=== PATIENT | male | born 1970 | race Caucasian/White ===

== ENCOUNTER → 2016-12-01 | Outpatient (CLI) | payer OTHER ==
[~2016-12-01] MED LIST: ALBUAER19 INH; CLX/20 PO; IBUP-103 PO; PRED20TA PO; PRLSR20 PO
[2016-12-01 12:33] LABS: BASO % 0.5 %; BASO ABS # 0.04 K/uL (0-0.2); COMPLETE YES; EOS % 1.5 %; HEMATOCRIT 44.9 % (42-52); IG% 0.1 %; LYMPH % 27.4 %; LYMPH ABS # 2.14 K/uL (1.2-3.4); MEAN CELL VOLUME 81.3 fL (80-100); MEAN CORPUSCULAR HEMOGLOBIN 27.2 pg (25-34); MEAN CORPUSCULAR HGB CONC 33.4 g/dl (32-36); MONO % 4.5 %; PLATELET COUNT 284 K/uL (130-400); RED BLOOD COUNT 5.52 M/uL (4.7-6.1); WHITE BLOOD COUNT 7.82 K/uL (4.8-10.8)
[2016-12-01 13:11] LABS: ALKALINE PHOSPHATASE 85 U/L (45-117); AST/SGOT 23 U/L (15-37); BLOOD UREA NITROGEN 11 mg/dl (7-18); BUN/CREATININE RATIO 13.2 (10-20); CALCIUM 8.5 mg/dl (8.5-10.1); CARBON DIOXIDE 30 mmol/L (21-32); CHLORIDE 107 mmol/L (98-107); CHOLESTEROL 174 mg/dl (0-200); CHOLESTEROL/HDL RATIO 4.4; CREATININE 0.85 mg/dl (0.60-1.40); GLUCOSE 143 mg/dl (70-99); HDL CHOLESTEROL 40 mg/dl; LDL CHOLESTEROL CALCULATED 106 mg/dl; POTASSIUM 4.2 mmol/L (3.5-5.1); RATIO 6.8 mcg/mg (0-30.0); SODIUM 142 mmol/L (136-145); TRIGLYCERIDES 139 mg/dl (0-150); VERY LOW DENSITY LIPOPROT CALC 28 mg/dl
[2016-12-01 13:19] LABS: ALT/SGPT 31 U/L (12-78)
[2016-12-01 13:27] LABS: ESTIMATED AVERAGE GLUCOSE 143 mg/dl; HA1C FLAG Normal (Normal)
== END | disposition home or self-care (01) ==
LOC: C.LAB1850 10:18
PROVIDERS: ATTEND Nurse Practitioner Family
DX: E66.9 Obesity, unspecified (principal); E78.5 Hyperlipidemia, unspecified; Z13.1 Encounter for screening for diabetes mellitus

== ENCOUNTER 2017-03-08 16:11 | Emergency (ER) | payer OTHER ==
[~2017-03-08] VITALS: Ht 177.8 cm; Wt 106.0 kg
[~2017-03-08 16:11] MED LIST changes: -PRED20TA PO
[2017-03-08 16:14] VITALS: TEMP 36.7; Ht 177.8 cm; Wt 106.0 kg
[2017-03-08] MEDS ORDERED: DEXAMETHASONE SOD INJ 10 MG/ML VIAL IM ONE (16:30)
[2017-03-08] MEDS ORDERED: PRED20TA PO (16:35)
--- NOTE | 2017-03-08 16:45 | EMERGENCY ROOM VISIT NOTE ---
History First contact with patient: 16:17 Chief Complaint: RASH Stated Complaint: POISY VERÓNICA OR OAK History of Present Illness The patient is a 47 year old male who presents to the Emergency Room with complaints of poison verónica dermatitis. The patient reports that he cut down a tree last Monday that was covered with IV. He did not realize that it was poison verónica until he woke up from a nap that evening and his arms were red and swollen. He reports that his arms are affected the most, followed by his abdomen and chest. He also had small red lesions under both eyes. He was seen at the [facility] urgent care center on Monday and was administered a steroid shot, and received a tapered dose of prednisone. The patient reports that he was only treated for 5 days. He has a history of sarcoidosis and take steroids frequently, and asked that the steroids be treated for a longer period of time. The patient reports that after completing his steroid taper, the rash came back worse, except for the face. He rates his overall discomfort a 4 out of 10. Review of Systems 10 system review was performed and was negative except for pertinent positives and negatives as indicated in history of present illness Past Medical/Surgical History Medical Problems: (1) Anxiety State Nos (2) Asthma, Unspecified (3) Calculus Of Ureter (4) Diabetes (5) Diverticulosis Colon (W/O Ment Of Hemorrhage) (6) Hyperlipidemia, Unspecified (7) Int Hemorrhoid W/O Compl (8) Pneumonia, Organism Nos (9) Sarcoidosis (10) Splenomegaly Surgical Problems: (1) History of lung biopsy Family History FH: diabetes mellitus FH: heart disease FH: hypertension FH: kidney disease Social History Smoking Status: Never Smoker Alcohol Use: occasionally Marital Status: Housing Status: lives with family Occupation Status: employed Current/Historical Medications Scheduled Citalopram (Citalopram Hydrobromide), 20 MG PO DAILY Prednisone (Prednisone), 0 PO DAILY Scheduled PRN Albuterol Inhaler (Ventolin Inhaler), 1-2 PUFFS INH 4-6HRS PRN for SOB/Wheezing Ibuprofen Tab (Advil), 200-600 MG PO Q4H PRN for Pain Omeprazole (Prilosec), 20 MG PO DAILY PRN for Indigestion Physical Exam Vital Signs Date Time Temp Pulse Resp B/P (MAP) Pulse Ox O2 Delivery O2 Flow Rate FiO2 03/08/17 16:14 36.7 78 17 127/77 95 Room Air Physical Exam CONSTITUTIONAL: Healthy and well nourished. Alert and oriented X 3 with positive affect. Patient does not appear in any acute distress. HEENT: Normocephalic, atraumatic. Pupils equal, round and reactive. NECK: Full active range of motion without discomfort. RESPIRATORY: Clear to auscultation bilaterally with no wheezing, crackles, rhonchi or stridor. INTEGUMENTARY: Examination shows significant erythematous raised and confluent rash mostly on the volar aspect of the forearms and upper arms. He also has a few areas on the abdomen and chest. There are no open wounds or evidence for secondary infection. No excoriations or desquamation. NEUROLOGIC: No focal neurologic deficits noted. Medical Decision & Procedures ED Course Patient history and physical exam were performed. Nurse's notes were reviewed. Vital signs were reviewed and normal. The patient was administered Decadron 10 mg IM, and was provided a longer prescription of a prednisone taper. The patient was provided a handout for further education. He was encouraged to avoid hot showers and heat. The patient does work outside in [employer] she is going to be difficult over the next several days because of the heat. He was encouraged to follow-up with his PCP as needed for further management. The patient was happy with plan of care, and voiced understanding of all discharge instructions. Medical Decision Medication Reconcilliation Current Medication List: was personally reviewed by me Blood Pressure Screening Patient's blood pressure: Normal blood pressure Impression Primary Impression: Dermatitis due to plants, including poison verónica, sumac, and oak Departure Information Dispostion Home / Self-Care Prescriptions Prednisone (Prednisone) 20 Mg Tab 0 PO DAILY, #18 TAB 4 DAILY FOR 4 DAYS, THEN 3 DAILY FOR 4 DAYS, THEN 2 DAILY FOR 4 DAYS, THEN 1 DAILY FOR 4 DAYS. Prov: Arturo Lindsey PA 03/08/17 Forms HOME CARE DOCUMENTATION FORM, IMPORTANT VISIT INFORMATION Patient Instructions Poison Verónica [place] React, My [facility] Additional Instructions Continue with prednisone taper as prescribed. Intermittently apply cool compresses to areas of most irritation for itch. Try to avoid hot showers, and avoid heat. Continue follow-up with your PCP as needed if dermatitis rebounds after the prednisone is completed.
--- NOTE | 2017-03-08 17:00 | Pharmacy Progress Note ---
ED Pharmacist Progress Note Date of Service: Mar 08, 2017. [facility] ([phone]) called asking for clarification on Prednisone Rx. I spoke with Stephen MIRELES, the Rx is for Prednisone 20mg tablets # 40 and the tapering directions provided on the original Rx are correct. RP had no further questions
[2017-03-08 17:05] VITALS: BP 124/75; PULSE 75; O2SAT 94
== END 2017-03-08 17:05 | disposition home or self-care (01) ==
LOC: C.EDB 16:13 → C.EDD 17:05
DX: L23.7 Allergic contact dermatitis due to plants, except food (principal); F41.9 Anxiety disorder, unspecified; J45.909 Unspecified asthma, uncomplicated; Z87.442 Personal history of urinary calculi; E11.9 Type 2 diabetes mellitus without complications; E78.5 Hyperlipidemia, unspecified; Z87.01 Personal history of pneumonia (recurrent); Z83.3 Family history of diabetes mellitus; Z82.49 Family history of ischemic heart disease and other diseases of the circulatory system; Z84.1 Family history of disorders of kidney and ureter; Z79.899 Other long term (current) drug therapy

== ENCOUNTER → 2017-04-20 | Outpatient (CLI) | payer OTHER ==
[~2017-04-20] MED LIST changes: -ALBUAER19 INH; -CLX/20 PO; +PRED20TA PO
[2017-04-20 12:27] LABS: BLOOD UREA NITROGEN 17 mg/dl (7-18); BUN/CREATININE RATIO 20.2 (10-20); CALCIUM 9.2 mg/dl (8.5-10.1); CARBON DIOXIDE 30 mmol/L (21-32); CHLORIDE 109 mmol/L (98-107); CREATININE 0.83 mg/dl (0.60-1.40); GLUCOSE 91 mg/dl (70-99); POTASSIUM 4.3 mmol/L (3.5-5.1); SODIUM 142 mmol/L (136-145)
[2017-04-20 12:46] LABS: ESTIMATED AVERAGE GLUCOSE 123 mg/dl; HA1C FLAG Normal (Normal)
== END | disposition home or self-care (01) ==
LOC: C.LAB1850 10:03
PROVIDERS: ATTEND Nurse Practitioner Family
DX: E11.9 Type 2 diabetes mellitus without complications (principal)

== ENCOUNTER → 2017-11-23 | Outpatient (CLI) | payer OTHER ==
[~2017-11-23] MED LIST changes: -PRED20TA PO
[2017-11-23 12:31] LABS: HEMOGLOBIN A1C 5.4 % (4.5-5.6)
[2017-11-23 12:38] LABS: ALBUMIN 3.6 gm/dl (3.4-5.0); ALT/SGPT 35 U/L (12-78); BLOOD UREA NITROGEN 14 mg/dl (7-18); CALCIUM 8.4 mg/dl (8.5-10.1); CARBON DIOXIDE 27 mmol/L (21-32); CHOLESTEROL 157 mg/dl (0-200); CREATININE 0.88 mg/dl (0.60-1.40); GLUCOSE 106 mg/dl (70-99); POTASSIUM 4.1 mmol/L (3.5-5.1); SODIUM 139 mmol/L (136-145)
[2017-11-23 12:41] LABS: ALKALINE PHOSPHATASE 61 U/L (45-117); AST/SGOT 19 U/L (15-37); LDL CHOLESTEROL CALCULATED 101 mg/dl; TOTAL PROTEIN 7.1 gm/dl (6.4-8.2)
== END | disposition home or self-care (01) ==
LOC: C.LAB1850 09:37
PROVIDERS: ATTEND Nurse Practitioner Family
DX: E78.5 Hyperlipidemia, unspecified (principal); K76.0 Fatty (change of) liver, not elsewhere classified; E11.9 Type 2 diabetes mellitus without complications; R53.83 Other fatigue

== ENCOUNTER → 2017-12-27 | Outpatient (CLI) | payer OTHER ==
--- NOTE | 2017-12-27 17:48 | DIAGNOSTIC IMAGING REPORT ---
R SHOULDER MIN 2 VIEWS ROUTINE CLINICAL HISTORY: 47 years-old Male presenting with M25.511 Right shoulder [id number]. TECHNIQUE: Internal rotation, external rotation, and Grashey views of the right shoulder were obtained. COMPARISON: None. FINDINGS: Acromioclavicular and glenohumeral joints congruent. Evaluation suboptimal due to inadequate external rotation view. Allowing for this, no acute fracture or malalignment. No advanced degenerative change. No radiographic soft tissue abnormality. IMPRESSION: No acute osseous injury. Electronically signed by: Eliot Blackwood M.D. 12/27/2017 5:47 PM Dictated Date/Time: 12/27/2017 5:45 PM
== END | disposition home or self-care (01) ==
LOC: C.RAD 17:29
PROVIDERS: ATTEND Internal Medicine
DX: M25.511 Pain in right shoulder (principal)